=== PATIENT | male | born 1965 | race Caucasian/White ===

== ENCOUNTER 2018-12-12 06:24 | Inpatient (IN) | payer MEDICAID ==
[~2018-12-12] VITALS: Ht 180.3 cm; Wt 100.0 kg
[2018-12-12 06:31] VITALS: Ht 180.3 cm; Wt 100.0 kg
--- NOTE | 2018-12-12 07:00 | NUR ---
PT. IN ED WITH C/O PAIN, WARMTH, AND ERYTHEMA TO LEFT LEG & WOUND TO 2ND TOE [id number]. PT. STATES HE SAW HIS PCP 3 MONTHS AND WAS TOLD TO LET THE WOUND ON TOE "AIR OUT". REPORTS PAIN HAS WORSENED TO FOOT IN PAST FEW DAYS. +PMSE TO FOOT. PT. AAOX4, TALKING AND RESPONDING APPROPRIATELY, BREATHING E/U. NOT IN ANY APPARENT DISTRESS AT THIS TIME. DR. GUY AT BEDSIDE FOR MSE.
--- NOTE | 2018-12-12 07:05 | NUR ---
REPORT GIVEN TO KATHLEEN JACKSON FOR FURTHER CARE OF PATIENT. ALL QUESTIONS ANSWERED.
--- NOTE | 2018-12-12 07:10 | NUR ---
RECIEVED REPORT FROM MANUEL BUSH. AT BEDSIDE PT IS AAOX4, RESPS E/U, SKIN IS PINK, WARM AND INTACT.
[2018-12-12 07:36] LABS: CARBON DIOXIDE 28.3 mmol/L (21-32); CHLORIDE SERUM 105 mmol/L (98-107); GFR1 > 60 mL/min; GLUCOSE SERUM 97 mg/dL (74-106); POTASSIUM SERUM 3.7 mmol/L (3.5-5.1); SODIUM SERUM 143 mmol/L (136-145)
[2018-12-12 07:47] LABS: ALBUMIN 3.9 g/dL (3.4-5.0); ALKALINE PHOSPHATASE 100 U/L (46-116); ALT/SGPT 43 U/L (16-63); AST/SGOT 14 U/L (15-37); BILIRUBIN TOTAL 0.51 mg/dL (0.20-1.00); C REACTIVE PROTEIN 1.3 mg/dL (<=0.9); TOTAL PROTEIN, SERUM 7.9 g/dL (6.4-8.2)
[2018-12-12 07:48] LABS: T3 TOTAL 0.81 ng/mL
[2018-12-12 07:49] LABS: FREE T4 0.76 ng/dL (0.76-1.46); T4(THYROXINE) 6.2 ug/dL (4.7-13.3)
[2018-12-12] MEDS ORDERED: LASIX40 MG PR (07:59)
--- NOTE | 2018-12-12 08:00 | NUR ---
PT REPORTS "I JUST WENT TO THE RESTROOM BEFORE I CAME IN". UNABLE TO OBTAIN URINE AT THIS MOMENT WILL CONTINUE TO MONITOR.
[2018-12-12 08:10] LABS: BASOPHIL % 0.6 % (0-2); PLATELET COUNT 231 x10^3mcL (130-400)
[2018-12-12 08:13] LABS: RED CELL DISTRIBUTION WIDTH 15.3 % (11.5-14.5)
--- NOTE | 2018-12-12 08:50 | NUR ---
WAS MIXING VANCO MEDICATION AND HAD FLUID LOSS. CONTACTED PHARMACY TO ORDER A PRE-MIXED BAG. THEY WILL HAVE IT READY FOR PICK-UP SHORTLY.
[2018-12-12 10:02] LABS: ERYTHROCYTE SED RATE 7 mm/hr (0-20)
--- NOTE | 2018-12-12 10:44 | NUR ---
SLEEPING BUT EASILY AROUSABLE, RESPS EVEN AND UNLABORED, SKIN IS PINK, WARM AND DRY. PT SP02 DROPPED TO 90%, SO PT PLACED ON 2L O2 NC. SP02 NOW 94%. DR NEWBERRY MADE AWARE.
--- NOTE | 2018-12-12 12:36 | NUR ---
PT SLEEPING IN POSITION OF COMFORT. PT EASILY AROUSABLE. BED IN LOWEST POSITION. BED RAILS UP X2 WITH CONSENT OF PATIENT. WILL CONTINUE TO MONITOR.
--- NOTE | 2018-12-12 13:48 | NUR ---
PT RESTING IN POSITION OF COMFORT. PT'S FRIEND IS AT BEDSIDE AND BOTH ARE WATING A MOVIE ON IPAD. NO ACUTE DISTRESS NOTED AEB RESPS E/U, SKIN IS PINK, WARM AND DRY.
--- NOTE | 2018-12-12 14:58 | NUR ---
PT C/O L FOOT PAIN. GAVE PT PRN NORCO. PT FRIEND AT BEDSIDE. PT LAUGHING WITH FRIEND. PT DESCRIBES PAIN BURNING AND RATES IT AT A 10/10. I WILL RE-EVALUATE PAIN
--- NOTE | 2018-12-12 15:12 | NUR ---
REPORT GIVEN TO MILLER FROM MED/SURG TO ASSUME CARE FOR PT.
[2018-12-12 15:49] VITALS: BP 132/87
--- NOTE | 2018-12-12 16:17 | NUR ---
RECEIVED PT FROM ER, PT ADMIT FOR LEFT FOOT CELLUTLITIS, PT IS A/O X4, VERBAL RESPONSIVE, ABLE TO TELL WHAT HE NEEDS. LUNG SOUND CLEAR BILATERAL, NO COUGH, NO SOB, PT IS ON 2L/MIN O2 VIA NC, PO2 96%, DENY ANY CHEST PAIN, BOWEL SOUND PRESENT ALL 4 QUADARNTS, NO DISTENTION, NO TENDER. PEDAL PULSER RIGHT FOOT IS WEAK, LEFT FOOT IS STRONG, +2 EDEMA BLE, ERYTHEMA, LEFT SECOND TOE OPEN WOUND WITH YELLOW DRAINAGE. 3RD TOE MISSING NAIL, RIGHT FOOT IS PURPLE DISCOLRATION. IV AT LEFT AC, NO LEAKING, NO INFITLRATION. ALL ADLS ASSIST, ALL NEED MET, CALL LGITH IN REACH, WILL CONTINUE TO MONITOR.
--- NOTE | 2018-12-12 16:20 | NUR ---
PT RECEIVED AND INTRODUCED SELF TO PATIENT. JORGE ADMITTING PATIENT.
--- NOTE | 2018-12-12 16:40 | NUR ---
PT ADMITTED DUE TO CELLULITIS LT LEG. LT FOOT 2ND AND 3RD TOE, NO TOENAILS. SWOLLEN LT TOES AND LT FOOT. LT 2ND TOE WOUND NOTED AND PINKISH/ERYTHEMAS NOTED. LT PEDAL PULSE 2+ AND LT LEG SWOLLEN NOTED. PT STATED HE PUT ON LIDOCAINE GEL ON LT FOOT, TOES TO NUMB THE AREAS BEFORE HE AMBULATES. RT FOOT TINY VEINS PROTRUDING AND NOTICABLE WITH 1+ PEDAL PULSES WITH NO EDEMA NOTED. PAIN UPON MOVEMENT ON LOWER EXTREMITIES.
--- NOTE | 2018-12-12 17:35 | NUR ---
DR. SOLIS DEBRIDED PTS LT FOOT, 2ND TOE. PICTURE TAKEN AND DRSG DONE PER DR. SOLIS.
[2018-12-12 18:04] VITALS: BP 132/80
--- NOTE | 2018-12-12 18:19 | NUR ---
PT RESTING QUIETLY AT THIS TIME. DRSG ON LT FOOT INTACT. CALL LIGHT WITHIN REACHED. IV SITE ON LT F/A, NO S/S INFILTRATION. IVF NS INFUSING WELL AT 100CC/HR.
--- NOTE | 2018-12-12 19:42 | NUR ---
WAS ASLEEP ON INITIAL NURSING ROUNDS,NOT DISTURBED FOR SHIFT REASSESSMENT.BREATHING EASY.WILL COME BACK.CALL LIGHT IN REACH.
--- NOTE | 2018-12-12 20:00 | NUR ---
SHIFT REASSESSMENT DONE.PATIENT A/O X4.O2 AT 2 LITERS.BREATHING EASY.AMBULATE ASSIST R/T TOES WOUND.NS AT 100 CC/ HOUR.LAC.WILL APPLY EXTENSION TUBING LATER FOR EASIER HANDLING BOTH NURSE AND PATIENT.REMINDED WE NEED UA,NOT SENT YET SINCE ADMIT PER PREVIOUS NURSE.MEDSURG PATIENT.L SECOND TOE WOUNDL THIRD TOE MISSING NAIL,R FOOT PURPLE DISCOLORATION,BLE ERYTHEMA ON ADMIT.DR SOLIS DEBRIDED SECOND LEFT TO LEFT FOOT.DRESSING INTACT.SISTER CALLED,UPDATED ABOUT PATIENT CONDITION,SHE SAID,HE IS HOMELESS.CALL LIGHT IN REACH.
--- NOTE | 2018-12-12 21:41 | NUR ---
PM MEDS GIVEN SCHEDULED.
[2018-12-12 22:14] VITALS: BP 110/80
--- NOTE | 2018-12-12 23:22 | NUR ---
PATIENT VOIDED.URINAL,SAYS HE DO NOT KNOW HOW TO USE IT,HE SPILLED IT IN BED.WILL SEND URINE LAB.
[2018-12-12 23:54] LABS: UA SPECIFIC GRAVITY >=1.030 (1.005-1.035); microscopic required? YES; urine erythrocyte TRACE (NEGATIVE)
[2018-12-13 00:29] LABS: AMPHETAMINE QUAL UR NONE DETECTED (See below)
--- NOTE | 2018-12-13 02:14 | NUR ---
CHECKED AT INTERVALS FOR NEEDS AND SAFETY.
[2018-12-13 04:52] VITALS: BP 117/74
--- NOTE | 2018-12-13 06:11 | NUR ---
I AND O MEASURED.PAIN MED INDICATED.GIVEN PAIN MED TWICED THIS SHIFT.
[2018-12-13 08:20] VITALS: BP 146/102
[2018-12-13 09:05] LABS: BASOPHIL % 0.6 % (0-2); PLATELET COUNT 215 x10^3mcL (130-400); RED CELL DISTRIBUTION WIDTH 15.5 % (11.5-14.5)
[2018-12-13 09:15] LABS: CALCIUM 8.6 mg/dL (8.5-10.1); CARBON DIOXIDE 27.4 mmol/L (21-32); CHLORIDE SERUM 104 mmol/L (98-107); CREATININE SERUM 1.1 mg/dL (0.7-1.3); GFR1 > 60 mL/min; GLUCOSE SERUM 143 mg/dL (74-106); POTASSIUM SERUM 4.1 mmol/L (3.5-5.1); SODIUM SERUM 140 mmol/L (136-145)
--- NOTE | 2018-12-13 15:43 | NUR ---
Wound nurse provided the wound dressing. Wound is very cleaned, dried, and no bleeding occured. Patient pain level is 8 on 10. He will receieved pain meds and we continue to monitor the patient.
[2018-12-13 16:40] VITALS: BP 128/94
--- NOTE | 2018-12-13 20:00 | NUR ---
SHIFT REASSESSMENT DONE.PATIENT ALERT AND ORIENTED.OSMAR,SIG OTHER AT BEDSIDE.SUPPORTIVE OF CARE.BREATHING EASY.CXR CARDIOMEGALY.XRAY OF LEFT FOOT NO FRACTURE.IVF NS AT 100 CC/ HOUR LAC.ATB SCHEDULE.STILL MEDSURG PATIENT NO TELE,FULL CODE.DRESSING TO AFFECTED L LEG INTACT.R FOOT DISSCOLORATION NOTED ON ADMIT.BLE EDEMA NOTED.WILL GIVE PAIN PILL,HAD PAIN SHOT ON DAY SHIFT.PATIENT IS MORE AWAKE TONIGHT.CALL LIGHT IN REACH.
[2018-12-13 21:30] VITALS: BP 142/91
--- NOTE | 2018-12-13 21:33 | NUR ---
PM MEDS GIVEN,SWALLOWS WELL.GIVEN NORCO AT 2025.PATIENT PLEASANT AND COOPERATIVE.
--- NOTE | 2018-12-14 02:21 | NUR ---
ALL ATB PAST MNIGHT GIVEN,IV SITE GOOD.URINAL AT BBEDSIDE,VOIDING.CALL LIGHT IN REACH.
[2018-12-14 05:15] VITALS: BP 136/95
--- NOTE | 2018-12-14 06:06 | NUR ---
PATIENT AM IVF INFUSING.STATED WANTED TO GO HOME TODAY.CHARGE NURSE MADE AWARE.I AND O MEASURED.DRESSING TO LEFT LEG INTACT.WILL ENDORSE TO NEXT SHIFT.CALL LIGHT IN REACH.
[2018-12-14 06:41] LABS: CALCIUM 8.5 mg/dL (8.5-10.1); CARBON DIOXIDE 29.8 mmol/L (21-32); CHLORIDE SERUM 105 mmol/L (98-107); CREATININE SERUM 1.1 mg/dL (0.7-1.3); GFR1 > 60 mL/min; GLUCOSE SERUM 99 mg/dL (74-106); POTASSIUM SERUM 4.3 mmol/L (3.5-5.1); SODIUM SERUM 143 mmol/L (136-145)
[2018-12-14 07:14] LABS: PLATELET COUNT 195 x10^3mcL (130-400)
--- NOTE | 2018-12-14 07:29 | NUR ---
RECEIVED AWAKE, ALERT AND ORIENTED. IN NO ACUTE RESP. DISTRESS. VS WNL.NO C/O PAIN OR DISCOMFORT AT THIS TIME. IVF INFUSING WELL AND SITE CLEAR. CALL LIGHT WITHIN REACH. WILL CONTINUE WITH PLAN OF CARE.
[2018-12-14 07:45] LABS: RED CELL DISTRIBUTION WIDTH 15.7 % (11.5-14.5)
--- NOTE | 2018-12-14 07:57 | NUR ---
PT WANT TO GO HOME TODAY AND WILL SIGN AMA IF NOT DC'D. Britney SCHULTZ IS AT BEDSIDE TALKING TO PT RE: RISKS OF LEAVING AMA. PT VERBALIZED UNDERSTANDING BUT INSISTING OF LEAVING. AMA FORM PROVIDED AND PT SIGNED. ALERT AND ORIENTED. VERBALIZED UNDERSTANDING OF WHAT COULD HAPPEN IF HE LEAVES. INSTRUCTED TO GO TO THE NEAREST HOSPITAL IF SYMPTOMS WORSENS. HL REMOVED AND SITE WITH NO REDNESS OR SWELLING. PT DENIES PAIN OR DISCOMFORT AT THIS TIME. GETTING READY TO LEAVE.
== END 2018-12-14 09:46 | disposition left against medical advice (07) | DRG 361 ==
LOC: ED 06:24 → MU 07:50
PROVIDERS: Specialist; ADMIT General Practice
PROC: 0HBNXZZ Excision of Left Foot Skin, External Approach (ICD-10-PCS; principal; 2018-12-12)
DX: L03.116 Cellulitis of left lower limb (principal); L97.521 Non-pressure chronic ulcer of other part of left foot limited to breakdown of skin; I87.2 Venous insufficiency (chronic) (peripheral); R73.03 Prediabetes; F17.210 Nicotine dependence, cigarettes, uncomplicated; Z53.29 Procedure and treatment not carried out because of patient's decision for other reasons; Z68.28 Body mass index [BMI] 28.0-28.9, adult
CPT/HCPCS: 82962; 84439; 90715; G0480; J2001; J2270; J2543; J3370; J7030; J7050; Q0092